=== PATIENT | male | born 1985 | race Hispanic/Latino ===

== ENCOUNTER 2024-04-05 21:20 | Emergency (ER) | payer OTHER ==
--- OUTSIDE RECORDS SUMMARY | 2024-04-05 21:23 | XMS REPORT | Continuity of Care Document ---
Author Name Unknown Address [address] [facility] [address] [place] [address] [facility] Address [address] [facility] [address] [place] [address] Care Team Providers Care Tuna Purse Seiner Name Role Phone Osbaldo Vallejo Attending Clinician Unavailable Payers Payer Name Policy Type Policy Number Effective Date Expirati on Date Source [employer] 53 [id number] [facility] 6 [id number] 2023 00:00:00 [facility] 6 [id number] 2022 00:00:00 [facility] 6 [id number] 2022 00:00:00 [facility] 6 [id number] 2018 00:00:00 [facility] Problems Condition Name Condition Details Condition Category Status Onset Date Resolution Date Last Treatment Date Treating Clinician Comments Source [id number] Other obesity due to excess calories Problem [facility] Overweight Overweight Problem Co [facility] [id number] Type 2 diabetes mellitus with complicati on, without long-term current use of insulin Problem [facility] [id number] Mixed hyperlipid emia Problem [facility] [id number] Adult BMI 31.0-31.9 kg/sq m Problem [facility] Allergies, Adverse Reactions, Alerts Allergy Name Allergy Type Status Severity Reaction(s) Onset Date Inactive Date Treating Clinician Comments Source Penicill in Penicill in Active Unknown [facility] Social History Social Habit Start Date Stop Date Quantity Comments Source History of Tobacco Use [facility] Sex Assigned At [facility] Smoking Status Start Date Stop Date Source Never Smoker [facility] Medications Ordered Medication Name Filled Medication Name Start Date Stop Date Current Medication? Ordering Clinician Indication Dosage Frequency Signature (SIG) Comments Components Source Atorvastati n Calcium 20 MG Atorvastati n Calcium 20 MG No 1{table t} QD Atorvastat in Calcium 20 MG metFORMIN HCl ER 500 MG metFORMIN HCl ER 500 MG No 2{table ts} BID metFORMIN HCl ER 500 MG Immunizations Ordered Immunization Name Filled Immunization Name Date Status Comments Source Adacel (Tdap) Adacel (Tdap) 2018-03-29 14:25:00 Completed [facility] Adacel (Tdap) Adacel (Tdap) 2018-03-29 14:25:00 Completed [facility] Adacel (Tdap) Adacel (Tdap) 2018-03-29 14:25:00 Completed [facility] TDAP > 7 Years-Adacel TDAP > 7 Years-Adacel 2018-03-29 00:00:00 Completed [facility] Adacel (Tdap) Adacel (Tdap) Unknown Completed Co on [facility] Adacel (Tdap) Adacel (Tdap) Unknown Completed Co on [facility] Adacel (Tdap) Adacel (Tdap) Unknown Completed Co on [facility] Adacel (Tdap) Adacel (Tdap) Unknown Completed Co on [facility] Adacel (Tdap) Adacel (Tdap) Unknown Completed Co mmon [facility] Adacel (Tdap) Adacel (Tdap) Unknown Completed Co [facility] Vital Signs Vital Name Observation Time Observation Value Comments Chevy reynolds height 2024-03-08 16:00:00 67 [in_i] Commo n [facility] weight 2024-03-08 16:00:00 183.6 [lb_av] Co [facility] temperature 2024-03-08 16:00:00 96.5 [degF] Com [facility] bmi 2024-03-08 16:00:00 28.75 kg/m2 Comm on [facility] oximetry 2024-03-08 16:00:00 97 % Commo n [facility] respiratory rate 2024-03-08 16:00:00 18 /min [facility] blood pressure systolic 2024-03-08 16:00:00 132 mm[Hg] Common [facility] blood pressure diastolic 2024-03-08 16:00:00 76 mm[Hg] [facility] height 2023-11-03 16:10:00 67 [in_i] Commo n [facility] weight 2023-11-03 16:10:00 188.6 [lb_av] Co [facility] temperature 2023-11-03 16:10:00 97.9 [degF] Com [facility] bmi 2023-11-03 16:10:00 29.54 kg/m2 Comm on [facility] oximetry 2023-11-03 16:10:00 98 % Commo n [facility] respiratory rate 2023-11-03 16:10:00 18 /min [facility] blood pressure systolic 2023-11-03 16:10:00 120 mm[Hg] [facility] blood pressure diastolic 2023-11-03 16:10:00 68 mm[Hg] [facility] height 2023-11-03 16:10:00 67 [in_i] Commo n [facility] weight 2023-11-03 16:10:00 188.6 [lb_av] Co mmon [facility] temperature 2023-11-03 16:10:00 97.9 [degF] Com [facility] bmi 2023-11-03 16:10:00 29.54 kg/m2 Comm on [facility] oximetry 2023-11-03 16:10:00 98 % Commo n [facility] respiratory rate 2023-11-03 16:10:00 18 /min [facility] blood pressure systolic 2023-11-03 16:10:00 120 mm[Hg] [facility] blood pressure diastolic 2023-11-03 16:10:00 68 mm[Hg] Common [facility] height 2023-04-14 15:50:00 67 [in_i] Commo n [facility] weight 2023-04-14 15:50:00 195.4 [lb_av] Co mmon [facility] temperature 2023-04-14 15:50:00 97.2 [degF] Com mon [facility] bmi 2023-04-14 15:50:00 30.6 kg/m2 Commo n [facility] oximetry 2023-04-14 15:50:00 97 % Commo n [facility] respiratory rate 2023-04-14 15:50:00 17 /min [facility] blood pressure systolic 2023-04-14 15:50:00 117 mm[Hg] [facility] blood pressure diastolic 2023-04-14 15:50:00 68 mm[Hg] [facility] height 2022-06-30 11:50:00 67 [in_i] Commo n [facility] weight 2022-06-30 11:50:00 190 [lb_av] Comm on [facility] bmi 2022-06-30 11:50:00 29.75 kg/m2 Comm on [facility] blood pressure systolic 2022-06-30 11:50:00 130 mm[Hg] [facility] blood pressure diastolic 2022-06-30 11:50:00 76 mm[Hg] [facility] height 2022-01-27 16:30:00 67 [in_i] Commo n [facility] weight 2022-01-27 16:30:00 180 [lb_av] Comm on [facility] temperature 2022-01-27 16:30:00 98 [degF] Comm on [facility] bmi 2022-01-27 16:30:00 28.19 kg/m2 Comm on [facility] blood pressure systolic 2022-01-27 16:30:00 132 mm[Hg] [facility] blood pressure diastolic 2022-01-27 16:30:00 72 mm[Hg] [facility] height 2021-08-25 14:20:00 67 [in_i] Commo n [facility] weight 2021-08-25 14:20:00 183.9 [lb_av] Co mmon [facility] temperature 2021-08-25 14:20:00 97.0 [degF] Com mon [facility] bmi 2021-08-25 14:20:00 28.8 kg/m2 Commo n [facility] oximetry 2021-08-25 14:20:00 97 % Commo n [facility] respiratory rate 2021-08-25 14:20:00 17 /min [facility] blood pressure systolic 2021-08-25 14:20:00 135 mm[Hg] [facility] blood pressure diastolic 2021-08-25 14:20:00 73 mm[Hg] [facility] height 2021-04-17 11:30:00 67 [in_i] Commo n [facility] weight 2021-04-17 11:30:00 190 [lb_av] Comm on [facility] temperature 2021-04-17 11:30:00 97.4 [degF] Com mon [facility] bmi 2021-04-17 11:30:00 29.75 kg/m2 Comm on [facility] blood pressure systolic 2021-04-17 11:30:00 130 mm[Hg] Common [facility] blood pressure diastolic 2021-04-17 11:30:00 76 mm[Hg] [facility] Encounters Start Date/Time End Date/Time Encounter Type Admission Type Attending Clinicians Care Facility Care Department Encounter ID Source 2024-04-05 14:49:00 Outpatient Vallejo, Osbaldo [facility] [id number] [facility] 2024-03-08 15:01:00 Outpatient Vallejo, Osbaldo [facility] [id number] [facility] 2023-10-29 10:59:00 Outpatient Vallejo, Osbaldo [facility] [id number] [facility] 2023-10-27 16:27:00 Outpatient Vallejo, Osbaldo [facility] [id number] [facility] 2023-08-30 14:22:00 Outpatient Vallejo, Sobaldo STLML[facility] ST[facility] [id number] [facility] 2023-04-12 08:16:00 Outpatient Vallejo, Osbaldo STL[facility] ST[facility] [id number] [facility] 2022-06-25 16:58:00 Outpatient Vallejo, Osbaldo [facility] ST[facility] [id number] [facility] 2022-06-22 09:06:01 Outpatient Vallejo, Osbaldo STL[facility] ST[facility] [id number] [facility] 2022-01-26 09:11:00 Outpatient Vallejo, Osbaldo [facility] ST[facility] [id number] [facility] 2021-04-16 13:02:19 Outpatient Vallejo, Osbaldo [facility] [id number] [facility] 2021-04-16 12:45:53 Outpatient Vallejo, Osbaldo [facility] [id number] [facility] 2021-04-16 12:35:56 Outpatient Vallejo, Osbaldo [facility] [id number] [facility] 2021-04-16 12:35:23 Outpatient Vallejo, Osbaldo [facility] ST[facility] [id number] [facility] 2021-04-16 12:07:26 Outpatient Vallejo, Osbaldo [facility] [id number] [facility] 2021-04-16 11:55:51 Outpatient Valeljo, Osbaldo [facility] [id number] [facility] 2021-04-16 11:54:23 Outpatient Vallejo, Osbaldo [facility] [id number] [facility] 2021-04-16 11:20:55 Outpatient Vallejo, Osbaldo [facility] [id number] [facility] 2021-04-16 10:59:06 Outpatient Vallejo, Osbaldo [facility] [id number] [facility] 2024-03-08 00:00:00 2024-03-08 00:00:00 OFFICE VISIT ESTAB PT LEVEL 4 [facility] ST[facility] [id number] [facility] 2023-11-03 00:00:00 2023-11-03 00:00:00 OFFICE VISIT ESTAB PT LEVEL 3 [facility] [id number] [facility] 2023-10-27 00:00:00 2023-10-27 00:00:00 (TEL) STLMLC ST[facility] [id number] [facility] 2023-04-14 00:00:00 2023-04-14 00:00:00 PREV VISIT EST AGE 18-39 STLMLC STL[facility]C [id number] [facility] 2023-03-10 00:00:00 2023-03-10 00:00:00 (TEL) STLMLC STL[facility]C [id number] [facility] 2022-11-04 00:00:00 2022-11-04 00:00:00 (TEL) STLMLC STL[facility] [id number] [facility] 2022-06-30 00:00:00 2022-06-30 00:00:00 OFFICE VISIT ESTAB PT LEVEL 4 [facility] ST[facility] [id number] [facility] 2022-05-27 00:00:00 2022-05-27 00:00:00 (TEL) STLMLC STL[facility]C [id number] [facility] 2022-02-02 00:00:00 2022-02-02 00:00:00 (TEL) STLMLC ST[facility] [id number] [facility] 2022-01-27 00:00:00 2022-01-27 00:00:00 OFFICE VISIT ESTAB PT LEVEL 4 [facility] ST[facility] [id number] [facility] 2021-10-09 00:00:00 2021-10-09 00:00:00 (TEL) STLMLC ST[facility] [id number] [facility] 2021-08-25 00:00:00 2021-08-25 00:00:00 PREV VISIT EST AGE 18-39 STLMLC STL[facility]C [id number] [facility] 2021-04-17 00:00:00 2021-04-17 00:00:00 OFFICE VISIT ESTAB PT LEVEL 4 STL[facility]C ST[facility] [id number] [facility] 2020-06-19 00:00:00 2020-06-19 00:00:00 Outpatient [facility] [id number] [facility] 2020-05-22 00:00:00 2020-05-22 00:00:00 Outpatient [facility] [id number] [facility] 2020-02-12 00:00:00 2020-02-12 00:00:00 Outpatient [facility] [id number] [facility] 2020-01-04 00:00:00 2020-01-04 00:00:00 Outpatient [facility] [id number] [facility] 2020-01-01 00:00:00 2020-01-01 00:00:00 Outpatient [facility] [id number] [facility] 2019-11-15 10:01:00 2019-11-15 10:01:00 [facility] [id number] [facility] 2019-11-13 15:50:00 2019-11-13 15:50:00 [facility] [id number] [facility] 2019-10-23 11:35:00 2019-10-23 11:35:00 [facility] [id number] [facility] 2019-06-28 16:15:00 2019-06-28 16:15:00 [facility] [id number] [facility] 2019-03-29 15:15:00 2019-03-29 15:15:00 [facility] [id number] [facility] 2018-10-26 16:00:00 2018-10-26 16:00:00 [facility] [id number] [facility] 2018-07-26 15:30:00 2018-07-26 15:30:00 [facility] [id number] [facility] 2018-05-02 14:27:00 2018-05-02 14:27:[address] [facility] [id number] [facility] 2018-04-28 14:00:00 2018-04-28 14:00:[address] [facility] [id number] [facility] 2018-03-29 14:45:00 2018-03-29 14:45:[address] [facility] [id number] [facility] Results Test Description Test Time Test Comments Results Result Co mments Source
[2024-04-06] MEDS ORDERED: LIDOCAINE 1% MPF 30 ML VIAL ONE (00:34)
[2024-04-06 01:08] LABS: Absolute Basophils 0.1 K/uL (0-0.5); Absolute Eosinophils 0.3 K/uL (0-0.5); Absolute Lymphocytes (CBC) 2.9 K/uL (0.7-4.9); Absolute Monocytes 0.8 K/uL (0.1-1.3); Absolute Neutrophil 4.4 K/uL (1.8-8.0); Albumin 3.6 g/dL (3.4-5.0); Albumin/Globulin Ratio 1.1 (1.1-1.8); Anion Gap 9.8 mEq/L (5.0-15.0); Basophils % 0.8 % (0-1.3); Bilirubin Total 0.5 mg/dL (0.2-1.0); Eosinophils % 3.9 % (0-4.4); Globulin 3.2 g/dL (2.3-3.5); Hemoglobin 14.1 g/dL (13.6-17.9); Lymphocytes % 34.6 % (15.3-44.8); MCH 30.1 pg (27.0-35.0); MCHC 34.3 g/dL (32.0-36.0); MCV 87.6 fL (80-100); MPV 9.3 fL (7.6-11.3); Monocytes % 8.8 % (3.3-12.3); Neutrophils % 51.9 % (41.7-73.7); Platelets 210 thou/uL (152-406); Potassium 3.8 mEq/L (3.5-5.1); Protein, Total 6.8 g/dL (6.4-8.2); RBC Red Blood Cell Count 4.68 M/uL (4.33-5.43); Red Cell Distribution Width 13.3 % (12.1-15.2)
[2024-04-06] MEDS ORDERED: VANCOMYCIN 1 GM/VIAL ONE (01:16)
[2024-04-06] MEDS ORDERED: NA CHLORIDE 0.9% 100 ML ONE (01:17)
[2024-04-06] MEDS ORDERED: CEFEPIME 2 GM VIAL ONE (01:17)
[2024-04-06] MEDS ORDERED: NA CHLORIDE 0.9% 1,000 ML ONE (01:17)
[2024-04-06] MEDS ORDERED: NA CHLORIDE 0.9% 500 ML ONE (01:17)
--- NOTE | 2024-04-06 03:35 | EDPHYS ---
Physician Documentation [facility] Name: Dax Mullins Age: 38 yrs Sex: Male : 1985 Arrival Date: 04/05/2024 Time: 21:20 Bed 5 Private MD: ED Physician Grant Luo HPI: 04/05 22:47 This 38 yrs old Male presents to ER via Ambulatory with complaints of sp4 SUSPICIOUS BRUISE ON INNER THIGH. 04/06 22:40 38 -year-old male presents with right upper inner thigh redness swelling tenderness and sp4 a forming abscess, this has started several days ago.. Historical: - Allergies: 04/05 22:25 PENICILLINS; vc1 - Home Meds: 22:25 metformin 500 mg oral tablet 2 times per day [Active]; vc1 - PMHx: 22:25 Diabetes mellitus; vc1 - PSHx: 22:25 None; vc1 - Immunization history:: Client reports having NOT received the Covid vaccine. Flu vaccine is not up to date. - Infectious Disease History:: Denies. - Social history:: Smoking status: Patient denies any tobacco usage or history of. - Family history:: not pertinent. ROS: 04/06 22:40 Constitutional: Negative for fever, chills, and weight loss, positive for right upper sp4 thigh redness swelling tenderness All other systems are negative, Exam: 22:40 Constitutional: This is a well developed, well nourished patient who is awake, alert, sp4 and in no acute distress. Head/Face: Normocephalic, atraumatic. Eyes: Pupils equal round and reactive to light, extra-ocular motions intact. Lids and lashes normal. Conjunctiva and sclera are not injected. Cornea within normal limits. Periorbital areas with no swelling, redness, or edema. ENT: Nares patent. No nasal discharge, no septal abnormalities noted. Tympanic membranes are normal and external auditory canals are clear. Oropharynx with no redness, swelling, or masses, exudates, or evidence of obstruction, uvula midline. Mucous membranes moist. Neck: Trachea midline, no thyromegaly or masses palpated, and no cervical lymphadenopathy. Supple, full range of motion without nuchal rigidity, or vertebral point tenderness. Chest/axilla: Normal chest wall appearance and motion. Nontender with no deformity. No lesions are appreciated. Cardiovascular: Regular rate and rhythm with a normal S1 and S2. No gallops, murmurs, or rubs. Normal PMI, no JVD. No pulse deficits. Respiratory: Lungs have equal breath sounds bilaterally, clear to auscultation and percussion. No rales, rhonchi or wheezes noted. No increased work of breathing, no retractions or nasal flaring. Abdomen/GI: Soft, with normal bowel sounds. No distension or tympany. No guarding or rebound. No evidence of tenderness throughout. Back: No spinal tenderness. No costovertebral tenderness. Skin: Warm, dry with normal turgor. Normal color with no rashes, there is significant skin thinning and striae to the right upper inner thigh, there is a right upper medial thigh area of cellulitis redness swelling tenderness and induration without involvement of the scrotum. There is a well localized abscess medial right upper thigh MS/ Extremity: Pulses equal, no cyanosis. Neurovascular intact. Full, normal range of motion. Neuro: Awake and alert, GCS 15, oriented to person, place, time, and situation. Cranial nerves II-XII grossly intact. Motor strength 5/5 in all extremities. Sensory grossly intact. Vital Signs: 04/05 22:24 Weight 81.65 kg; Height 5 ft. 7 in. ; vc1 22:26 BP 127 / 85; Pulse 64; Resp 16; Temp 98.3; Pulse Ox 99% ; vc1 04/06 01:02 BP 124 / 82; Pulse 76; Resp 16; Pulse Ox 100% on R/A; dd2 04/05 22:24 Body Mass Index 28.19 (81.65 kg, 170.18 cm) vc1 Oanh Coma Score: 01:00 Eye Response: spontaneous(4). Motor Response: obeys commands(6). Verbal Response: dd2 oriented(5). Total: 15. 22:40 Eye Response: spontaneous(4). Motor Response: obeys commands(6). Verbal Response: sp4 oriented(5). Total: 15. Procedures: 01:17 I \T\ D: Incision and drainage was performed for an abscess of the right right inner sp4 thigh Prepped with alcohol, Anesthetized with 30 ml's 1% Lidocaine. Incised with #15 blade. Drained moderate amount purulent fluid. bloody fluid. Packed with iodoform gauze, Dressing: sterile 4x4 gauze, Foam Tape the patient tolerated the procedure well, Dressing applied . MDM: 04/05 21:30 Medical Screening Exam initiated sp4 04/06 22:40 Differential diagnosis: dislocation, contusion, abrasion, tendonitis. Data reviewed: sp4 vital signs, nurses notes, lab test result(s). Consideration of Admission/Observation Escalation of care including admission/observation considered. ED course: Abscess was drained and patient was provided instructions to go ahead and take out packing after 2 days. Patient was also advised to see his primary care physician for abscess check in 5 to 7-day. 04/05 23:37 Order name: CBC with Diff; Complete Time: 01:18 4 04/05 23:37 Order name: CMP; Complete Time: 01:18 4 04/05 23:37 Order name: Dressing - Wound; Complete Time: 01:35 4 04/05 23:37 Order name: Gloves, Sterile; Complete Time: 01:36 4 04/05 23:37 Order name: Setup Suture Tray; Complete Time: 00:40 sp4 04/05 23:37 Order name: IV Saline Lock; Complete Time: 00:41 sp4 04/05 23:37 Order name: Labs collected and sent; Complete Time: 00:49 sp4 Administered Medications: 01:35 Drug: NS 0.9% IV 1000 ml IV at 1 bolus Per protocol; to be given as a bolus over 60 dd2 minutes Route: IV; Rate: 1 bolus; Site: right antecubital; 01:50 Follow up: Response: No adverse reaction dd2 02:35 Follow up: IV Status: Completed infusion; IV Intake: 1000ml dd2 01:35 Drug: Cefepime IVPB 2 grams IVPB at 200 ml/hr once over 30 mins; (mix in NS 100 mL) dd2 Route: IVPB; Rate: 200 ml/hr; Infused Over: 30 mins; Site: right antecubital; 01:50 Follow up: Response: No adverse reaction dd2 02:05 Follow up: IV Status: Completed infusion; IV Intake: 100ml dd2 01:36 Drug: Lidocaine Infiltration (1 %) 20 ml 20 ml Infiltration once; to bedside {Note: dd2 ADMINISTERED BY DR. LUO.} Volume: 20 ml; Route: Infiltration; Site: wound; 02:15 Drug: vancoMYCIN IVPB 2 grams IVPB at calculated rate once Route: IVPB; Rate: dd2 calculated rate; Site: right antecubital; 02:30 Follow up: Response: No adverse reaction dd2 Disposition Summary: 04/06/24 03:35 Discharge Ordered Problem: new sp4 Symptoms: have improved sp4 Condition: Stable sp4 Diagnosis - Cellulits and Abscess Right upper Thigh, sp4 Followup: sp4 - With: Private Physician - When: 7 - 10 days - Reason: Recheck today's complaints Discharge Instructions: - Discharge Summary Sheet sp4 - Skin Abscess, Gosu-uj-Bizm sp4 Forms: - Work release form dd2 Prescriptions: - Cephalexin 500 mg Oral Capsule - take 1 capsule ORAL route every 6 hours for 10 days; 40 capsule; Refills: 0, sp4 Product Selection Permitted - Bactrim DS 800-160 mg Oral Tablet - take 1 tablet ORAL route every 12 hours for 10 days; 20 tablet; Refills: 0, sp4 Product Selection Permitted Signatures: Dispatcher [employer] EDMS Katlyn Meyers RN RN vc1 Grant Luo MD MD sp4 ROSA JAQUEZ RN RN dd2 Corrections: (The following items were deleted from the chart) 04/05 23:38 23:38 CBC+H.LAB.BRZ ordered. EDMS EDMS 23:38 23:38 COMPREHENSIVE METABOLIC PANEL+C.LAB.BRZ ordered. EDMS EDMS
--- NOTE | 2024-04-06 03:35 | ER ---
Nurse's Notes [facility] Name: Dax Mullins Age: 38 yrs Sex: Male : 1985 Arrival Date: 04/05/2024 Time: 21:20 Bed 5 Private MD: Diagnosis: Cellulits and Abscess Right upper Thigh, Presentation: 04/05 22:24 Chief complaint: Patient states: noticed ingrown hair with large bruising larger than a vc1 grapefruit. Coronavirus screen: Client denies travel out of the [place] in the last 14 days. At this time, the client does not indicate any symptoms associated with coronavirus-19. Ebola Screen: Patient negative for fever greater than or equal to 101.5 degrees Fahrenheit, and additional compatible Ebola Virus Disease symptoms Patient denies exposure to infectious person. Patient denies travel to an Ebola-affected area in the 21 days before illness onset. No symptoms or risks identified at this time. Initial Sepsis Screen: Does the patient meet any 2 criteria? No. Patient's initial sepsis screen is negative. Does the patient have a suspected source of infection? No. Patient's initial sepsis screen is negative. Risk Assessment: Do you want to hurt yourself or someone else? Patient reports no desire to harm self or others. Onset of symptoms was April 03, 2024. Care prior to arrival: None. Activity prior to arrival: None. 22:24 Method Of Arrival: Ambulatory vc1 22:24 Acuity: BESSIE 4 vc1 Triage Assessment: 22:26 General: Appears. vc1 Historical: - Allergies: 22:25 PENICILLINS; vc1 - Home Meds: 22:25 metformin 500 mg oral tablet 2 times per day [Active]; vc1 - PMHx: 22:25 Diabetes mellitus; vc1 - PSHx: 22:25 None; vc1 - Immunization history:: Client reports having NOT received the Covid vaccine. Flu vaccine is not up to date. - Infectious Disease History:: Denies. - Social history:: Smoking status: Patient denies any tobacco usage or history of. - Family history:: not pertinent. Screenin/16 01:00 [facility] Fall Risk Assessment (Adult) History of falling in the last 3 months, dd2 including since admission No falls in past 3 months (0 pts) Confusion or Disorientation No (0 pts) Intoxicated or Sedated No (0 pts) Impaired Gait No (0 pts) Mobility Assist Device Used No (0 pt) Altered Elimination No (0 pt) Score/Fall Risk Level 0 - 2 = Low Risk Oriented to surroundings, Maintained a safe environment, Educated pt \T\ family on fall prevention, incl call for assistance when getting out of bed, Assessed \T\ reinforced patient's understanding of fall precautions, Hourly rounding (assess needs \T\ fall precautionary measures) done. Abuse screen: Denies threats or abuse. Nutritional screening: No deficits noted. Tuberculosis screening: No symptoms or risk factors identified. Assessment: 01:00 General: Appears in no apparent distress. uncomfortable, Behavior is calm, cooperative, dd2 appropriate for age. Pain: Complains of pain in right inner thigh Pain does not radiate. Pain currently is 6 out of 10 on a pain scale. Quality of pain is described as burning. Neuro: No deficits noted. Level of Consciousness is awake, alert, obeys commands, Oriented to person, place, time, situation, Appropriate for age. Cardiovascular: No deficits noted. Respiratory: No deficits noted. Airway is patent Respiratory effort is even, unlabored, Respiratory pattern is regular, symmetrical. GI: No deficits noted. No signs and/or symptoms were reported involving the gastrointestinal system. : No deficits noted. No signs and/or symptoms were reported regarding the genitourinary system. EENT: No deficits noted. No signs and/or symptoms were reported regarding the EENT system. Derm: Skin is red, Skin temperature is warm Abscess located on right inner thigh is nickel sized, is red, is raised, Reports burning, pain that is 6 out of 10 on a pain scale. Musculoskeletal: No deficits noted. No signs and/or symptoms reported regarding the musculoskeletal system. Circulation, motion, and sensation intact. Range of motion: intact in all extremities. 03:45 Reassessment: D/C ON HOLD FOR COMPLETION OF IV ANTIBIOTICS. dd2 Vital Signs: 04/05 22:24 Weight 81.65 kg; Height 5 ft. 7 in. ; vc1 22:26 BP 127 / 85; Pulse 64; Resp 16; Temp 98.3; Pulse Ox 99% ; vc1 04/06 01:02 BP 124 / 82; Pulse 76; Resp 16; Pulse Ox 100% on R/A; dd2 04/05 22:24 Body Mass Index 28.19 (81.65 kg, 170.18 cm) vc1 Oanh Coma Score: 01:00 Eye Response: spontaneous(4). Motor Response: obeys commands(6). Verbal Response: dd2 oriented(5). Total: 15. 22:40 Eye Response: spontaneous(4). Motor Response: obeys commands(6). Verbal Response: sp4 oriented(5). Total: 15. ED Course: 04/05 21:22 Patient arrived in ED. [id number] 21:30 Grant Luo MD is Attending Physician. sp4 22:25 Triage completed. vc1 22:26 Arm band placed on right wrist. vc1 04/06 00:41 Inserted saline lock: 20 gauge in right antecubital area, using aseptic technique. vk Blood collected. Flushed with 10 mL NS. 00:49 CBC with Diff Sent. vk 00:49 CMP Sent. vk 00:49 Initial lab(s) drawn, by me, sent to lab. vk 00:55 ROSA JAQUEZ, RN is Primary Nurse. dd2 01:00 Patient has correct armband on for positive identification. Bed in low position. Call dd2 light in reach. Side rails up X2. Client placed on continuous cardiac and pulse oximetry monitoring. NIBP monitoring applied. Door closed. Noise minimized. Warm blanket given. Pillow given. Verbal reassurance given. 01:36 Assist provider with I \T\ D: of an abscess on right abscess Set up I\T\D tray. Performed dd 2 by Grant Luo MD Wound packed. iodoform gauze, Dressing with 4X4s, tape Patient tolerated well. 04:54 Provided Education on: abx. vc1 04:54 IV discontinued, intact, bleeding controlled, No redness/swelling at site. Pressure vc1 dressing applied. Administered Medications: 01:35 Drug: NS 0.9% IV 1000 ml IV at 1 bolus Per protocol; to be given as a bolus over 60 dd2 minutes Route: IV; Rate: 1 bolus; Site: right antecubital; 01:50 Follow up: Response: No adverse reaction dd2 02:35 Follow up: IV Status: Completed infusion; IV Intake: 1000ml dd2 01:35 Drug: Cefepime IVPB 2 grams IVPB at 200 ml/hr once over 30 mins; (mix in NS 100 mL) dd2 Route: IVPB; Rate: 200 ml/hr; Infused Over: 30 mins; Site: right antecubital; 01:50 Follow up: Response: No adverse reaction dd2 02:05 Follow up: IV Status: Completed infusion; IV Intake: 100ml dd2 01:36 Drug: Lidocaine Infiltration (1 %) 20 ml 20 ml Infiltration once; to bedside {Note: dd2 ADMINISTERED BY DR. LUO.} Volume: 20 ml; Route: Infiltration; Site: wound; 02:15 Drug: vancoMYCIN IVPB 2 grams IVPB at calculated rate once Route: IVPB; Rate: dd2 calculated rate; Site: right antecubital; 02:30 Follow up: Response: No adverse reaction dd2 Medication: 01:00 VIS not applicable for this client. dd2 Intake: 02:05 IV: 100ml; Total: 100ml. dd2 02:35 IV: 1000ml; Total: 1100ml. dd2 Outcome: 03:35 Discharge ordered by MD. stovall 04:54 Discharged to home ambulatory, with family, vc1 04:54 Condition: good 04:54 Discharge instructions given to patient, Instructed on discharge instructions, follow up and referral plans. medication usage, Demonstrated understanding of instructions, follow-up care, medications, Prescriptions given X 2, 04:55 Patient left the ED. vc1 Signatures: Shannon Reina [id number] Katlyn Meyers RN RN vc1 Grant Luo MD MD sp4 Kruse, Vivian vk DAVIS, DIANA, RN RN dd2 Corrections: (The following items were deleted from the chart) 04:05 01:35 vancoMYCIN IVPB 2 grams IVPB at calculated rate in right antecubital dd2 dd2
[2024-04-07 02:42] VITALS: BP 124/82; TEMP 98.3; O2SAT 100
== END 2024-04-06 04:55 | disposition home or self-care (01) ==
LOC: ER 21:20
PROC: 0H9HXZZ Drainage of Right Upper Leg Skin, External Approach (ICD-10-PCS; principal; 2024-04-06)
DX: L03.115 Cellulitis of right lower limb (principal)
CPT/HCPCS: 96365; 85025; 36415; 80053; 96375; 99284; 10060; J2003; J0692; J7040; J7030